=== PATIENT | male | born 1965 | race Caucasian/White ===

== ENCOUNTER 2019-07-30 06:15 | Emergency (ER) | payer BC ==
--- NOTE | 2019-07-30 06:32 | ED ---
Abdominal Pain/Male - HPI Summary HPI Summary: Patient is a 53-year-old male who presents emergency department for left-sided abdominal pain that started yesterday. Patient notes pain is sharp and cramping in nature and constant. No modifying factors. Associated symptoms of nausea and diarrhea. Denies fever, chest pain, shortness of breath, urinary symptoms, testicular pain. No past medical history. Symptoms are moderate in severity. - History of Current Complaint Chief Complaint: EDAbdPain Stated Complaint: ABD PAIN PER PT Time Seen by Provider: 07/30/19 06:30 Hx Obtained From: Patient Pain Intensity: 8 - Allergies/Home Medications Allergies/Adverse Reactions: Allergies Allergy/AdvReac Type Severity Reaction Status Date / Time lidocaine Allergy Dizziness Verified 07/30/19 06:18 Home Medications: Home Medications Glucosam/Chondr/Collagn/Hyalur [Glucosamine & Chondroitin Cap] 1 tab PO DAILY [History Confirmed 07/30/19] Magnesium Oxide [Magnesium] 250 mg PO DAILY 07/30/19 [History Confirmed 07/30/19 ] Montelukast Sodium 10 mg PO DAILY 07/30/19 [History Confirmed 07/30/19] PMH/Surg Hx/FS Hx/Imm Hx Previously Healthy: Yes Endocrine/Hematology History: Denies: Hx Diabetes Cardiovascular History: Denies: Hx Hypertension, Hx Pacemaker/ICD Respiratory History: Reports: Hx Seasonal Allergies, Hx Sleep Apnea History: Denies: Hx Renal Disease Sensory History: Denies: Hx Hearing Aid Neurological History: Denies: Other Neuro Impairments/Disorders Psychiatric History: Denies: Hx Panic Disorder - Cancer History Cancer Type, Location and Year: BASAL CELL -SKIN - S/P 3 YRS - Surgical History Surgery Procedure, Year, and Place: Lateral Internal Sphincterotomy Infectious Disease History: No Infectious Disease History: Denies: Traveled Outside the [place] in Last 30 Days - Family History Known Family History: Positive: Non-Contributory - Social History Occupation: Employed Full-time Lives: With Family Review of Systems Positive: Chills. Negative: Fever Cardiovascular: Negative Respiratory: Negative Positive: Abdominal Pain, Diarrhea, Nausea. Negative: Vomiting Genitourinary: Negative Negative: dysuria, flank pain Skin: Negative Neurological: Negative All Other Systems Reviewed And Are Negative: Yes Physical Exam Triage Information Reviewed: Yes Vital Signs On Initial Exam: Initial Vitals Temp Pulse Resp BP Pulse Ox 98.1 F 72 18 164/99 97 07/30/19 06:16 07/30/19 06:16 07/30/19 06:16 07/30/19 06:16 07/30/19 06:16 Vital Signs Reviewed: Yes Appearance: Positive: Well-Appearing - Pt. lying in bed in NAD. present. Skin: Positive: Warm, Dry Head/Face: Positive: Normal Head/Face Inspection Eyes: Positive: Normal, EOMI Neck: Positive: Supple Respiratory/Lung Sounds: Positive: Clear to Auscultation, Breath Sounds Present Cardiovascular: Positive: Normal, RRR Abdomen Description: Positive: Other: - Abd. is soft with pain on palpation to LLQ and mild left CVA tenderness. No rebound or guarding. Musculoskeletal: Positive: Normal, Strength/ROM Intact Neurological: Positive: Normal, Alert, Oriented to Person Place, Time Psychiatric: Positive: Affect/Mood Appropriate Diagnostics - Vital Signs Vital Signs Temp Pulse Resp BP Pulse Ox 07/30/19 06:16 98.1 F 72 18 164/99 97 - Laboratory Result Diagrams: 07/30/19 07:34 07/30/19 07:34 Lab Statement: Any lab studies that have been ordered have been reviewed, and results considered in the medical decision making process. Abdominal Pain Male Course/Dx - Course Course Of Treatment: Pt. presenting with worsening LLQ pain. He is afebrile. Will obtain labs and CT scan for further evaluation. Pt. given IV fluids, zofran and morphine. CT per radiolgoy: IMPRESSION: 1. THERE IS A 8 MM OBSTRUCTIVE CALCULUS NEAR THE URETEROPELVIC JUNCTION ON THE LEFT. THERE IS MILD LEFT PERIRENAL STRANDING WITH A DELAYED NEPHROGRAM. Pain and nausea returned after CT Scan. Pt. given a dose of toradol and another dose of morphine and zofran. CBC shows mild leukocytosis. Cr elevated, U/A shows RBCs wthout infection. Lactic acid 2.1. On re-exam pt.'s pain is 0/10. Case discussed with Dr. Valle who requested KUB. Imaging reviewed. Dr. Valle states pt. will need a stent and lithotripsy. Dr. Valle can place a stent today and then have pt. f.u for litho. next week or he can see pt. in the office today and then schedule him for stent and litho together on Friday. Pt. would prefer to have both procedures on Friday. Percocet and zofran rx. CAR[employer]IMMER reviewed. Pt. to go to Dr. Valle's office directly upon dc. To return to ER over weekend for fever or uncontrolled pain/vomiting. Pt. and understand and agree with plan. - Diagnoses Differential Diagnosis/HQI/PQRI: Diverticulitis, Prostatitis, Renal Colic, Ureteral Stone, Urinary Tract Infection Provider Diagnoses: Urolithiasis Discharge ED - Sign-Out/Discharge Documenting (check all that apply): Patient Departure Patient Received Moderate/Deep Sedation with Procedure: No - Discharge Plan Condition: Improved Disposition: HOME Prescriptions: Ondansetron TAB* [Zofran 4 MG Tab*] 4 mg PO Q6H PRN #12 tab PRN Reason: Nausea oxyCODONE/Acetamin 5/325 MG* [Percocet 5/325 TAB*] 1 tab PO Q6H PRN #20 tab MDD 4 PRN Reason: Pain - Severe Patient Education Materials: Kidney Stones (ED) Referrals: Kvng Alvarado MD [Primary Care Provider] - Ambrosio Valle MD [Medical Doctor] - Additional Instructions: Please go directly to Dr. Valle's office upon discharge from the ED Pain medication as directed Ibuprofen as directed Increase fluids Return to ER for uncontrolled pain, vomiting, fever, or if concerned - Billing Disposition and Condition Condition: IMPROVED Disposition: Home
[2019-07-30] MEDS ORDERED: NS 0.9% 1000 ML** 1,000 ML IV ONE (06:52)
[2019-07-30] MEDS ORDERED: Morphine 4 MG/ML VIAL (1 ml) 4 MG/ML VIAL IV ONE ×2 (06:52→08:43)
[2019-07-30] MEDS ORDERED: Ondansetron INJ* 2 MG/ML VIAL IV ONE ×2 (06:52→08:43)
--- OUTSIDE RECORDS SUMMARY | 2019-07-30 07:18 | XMS REPORT | Continuity of Care Document ---
:1965 External Reference #:[id number] Author Name Doris Junior DNP, RN, [employer] (transmitted by agent of provider Gin Randall) Address [address], [address] [place] [address] Care Team Providers Name Role Phone Kvng Alvarado MD - Family Medicine Care Team Information K 12 Principal Problems Active Problems Provider Date Obstructive sleep apnea of adult Doris Junior DNP, RN, [employer] Onset: Social History Type Date Description Comments Sex Unknown ETOH Use Drinks Alcoholic Beverages Occasionally Tobacco Use Start: Unknown Patient has never smoked Recreational Drug Use Denies Drug Use Smoking Status Reviewed: 07/06/19 Patient has never smoked Exercise Type/Frequency Does not exercise Allergies, Adverse Reactions, Alerts Description No Known Drug Allergies Medications Active Medications SIG Qnty Indications Ordering Provider Date Shirley Allergy as directed by Unknown 03/25/2016 mouth Claritin as directed by Unknown 03/25/2016 mouth Multi Vitamin Mens every day by mouth Unknown 03/25/2016 Magnesium Unknown Glucosamine Unknown Chondroitin Complex Immunizations Description No Information Available Vital Signs Date Vital Result Comment 07/06/2019 1:46pm Height 68 inches 5'8" Weight 196.38 lb Heart Rate 64 /min BP Systolic Sitting 122 mmHg Lue large cuff BP Diastolic Sitting 80 mmHg Lue large cuff Respiratory Rate 16 /min O2 % BldC Oximetry 97 % On Ra BMI (Body Mass Index) 29.9 kg/m2 06/23/2018 1:33pm Height 68 inches 5'8" Weight 194.00 lb Heart Rate 64 /min BP Systolic Sitting 148 mmHg Lue reg cuff BP Diastolic Sitting 80 mmHg Lue reg cuff Respiratory Rate 16 /min O2 % BldC Oximetry 97 % On Ra BMI (Body Mass Index) 29.5 kg/m2 Results Description No Information Available Procedures Description No Information Available Medical Devices Description No Information Available Encounters Description No Information Available Assessments Date Code Description Provider 07/06/2019 G47.33 Obstructive sleep apnea (adult) Doris Junior DNP, RN, [employer]- (pediatric) Plan of Treatment 07/06/2019 - Doris Junior DNP, RN, [employer]G47.33 Obstructive sleep apnea ( adult) (pediatric)Comments:Sleep Apnea - NPSG 01/09/09 wt 185 BMI 28 AHI 52.3 /hour, oxygen jayy 87% On CPAP AHI 0.9/hour, normalFollow up:1 yearRecommendations:Continue PAP device, Benefitting and compliant with treatment. Cleaning Wipe off mask daily (baby wipe-no scent, or warm water) Clean mask, tubing, filter, and water chamber weekly in mild no scent dish soap and water. Hang to dry. If you have any sleepiness while driving you MUST avoid operating a vehicle or machinery. If you have difficulty with your equipment, or need to replace your mask or hoses, please contact your homecare agency. A weight change of 20 pounds or more may have an effect onyour equipment ; if you are experiencing problems please call for an appointment. If you have any further questions, please call the [facility] at [phone]. Functional Status Description No Information Available Mental Status Description No Information Available Referrals Description No Information Available
[2019-07-30 07:56] LABS: ABS Lymphocytes 0.8 10^3/ul (1.0-4.8); ABS Monocytes 0.6 10^3/ul (0-0.8); ABS Neutrophils 11.5 10^3/ul (1.5-7.7); Eosinophil % 0.2 %; Hematocrit 43 % (42-52); Hemoglobin 14.8 g/dL (14.0-18.0); Mean Corpuscular HGB Conc 35 g/dL (31-36); Mean Corpuscular Hemoglobin 32 pg (27-31); Mean Corpuscular Volume 93 fL (80-94); Mean Platelet Volume 7.8 fL (7.4-10.4); Platelet Count 277 10^3/uL (150-450); Red Cell Distribution Width 13 % (10-15)
[2019-07-30 07:58] LABS: ALT 43 U/L (7-52); AST 22 U/L (13-39); Albumin 4.4 g/dL (3.2-5.2); Albumin/Globulin Ratio 2.1 (1-3); Alkaline Phosphatase 47 U/L (34-104); Anion Gap 5 mmol/L (2-11); BUN/Creatinine Ratio 13.8 (8-20); Blood Urea Nitrogen 19 mg/dL (6-24); C Reactive Protein < 1.00 mg/L (<8.01); CO2 Carbon Dioxide 28 mmol/L (22-32); Calcium 9.3 mg/dL (8.6-10.3); Chloride 108 mmol/L (101-111); EGFR Non-African American 53.7 (>60); Globulin 2.1 g/dL (2-4); Glucose 119 mg/dL (70-100); Potassium 4.1 mmol/L (3.5-5.0); Sodium 141 mmol/L (135-145); Total Protein 6.5 g/dL (6.4-8.9)
[2019-07-30] MEDS ORDERED: Iodixanol* (CONTRAST) 320 MG/ML 100 ML SDV IV ONE (08:15)
[2019-07-30] MEDS ORDERED: Ketorolac INJ* 30 MG/ML 1 ML VIAL IV PUSH ONE (08:47)
[2019-07-30 09:25] LABS: Urine Appearance Clear; Urine Bacteria Absent (Absent); Urine Bilirubin Negative (Negative); Urine Blood 2+ (Negative); Urine Color Yellow; Urine Glucose Negative (Negative); Urine Ketones Negative (Negative); Urine Nitrite Negative (Negative); Urine Protein Negative (Negative); Urine Red Blood Cell 3+(>10/hpf) (Absent); Urine Urobilinogen Negative (Negative); Urine White Blood Cell Trace(0-5/hpf) (Absent)
[2019-07-30 11:09] VITALS: BP 145/95
== END 2019-07-30 11:07 | disposition home or self-care (01) ==
LOC: ED 06:15
DX: N20.1 Calculus of ureter (principal); R11.0 Nausea; R19.7 Diarrhea, unspecified; Z88.4 Allergy status to anesthetic agent
CPT/HCPCS: 36415; 74018; 74177; 80053; 81003; 81015; 83605; 85025; 86140; 87086; 96361; 96374; 96375; 96376; 99283; J1885; J2270; J2405; Q9967

== ENCOUNTER → 2019-08-02 | Day surgery (SDC) | payer BC ==
--- NOTE | 2019-07-30 16:26 | HP ---
CC: Dr. Alvarado; Dr. Valle ADMITTING HISTORY AND PHYSICAL: DATE OF ADMISSION: 08/02/19 ADMITTING DIAGNOSES: 1. Calculus, left ureteropelvic junction. 2. Left hydronephrosis. PLANNED PROCEDURE: Left stent insertion and shockwave lithotripsy of calculus, left ureter. SURGEON: Dr. Valle. HISTORY OF PRESENT ILLNESS: Balta Whitlock is a 53-year-old gentleman who has had increasing left fla nk pain for the last several days associated with nausea and chills. A CT scan revealed an approxima tely 8 mm calculus in the area of the left ureteropelvic junction with left hydronephrosis. PAST MEDICAL HISTORY: Significant for: 1. Gout. 2. Environmental allergies. PAST SURGICAL HISTORY: Significant for vasectomy and removal of basal cell carcinoma from face. MEDICATIONS ON ADMISSION: 1. Singulair 1 tablet daily. 2. Multiple vitamins and supplements. ALLERGIES: LIDOCAINE. FAMILY HISTORY: Negative for stones. SOCIAL HISTORY: Smoking history, nonsmoker. REVIEW OF SYSTEMS: Otherwise in excellent health. There is no history of diabetes mellitus or any o ther major systemic illness. PHYSICAL EXAMINATION GENERAL: Reveals a pleasant, middle-aged gentleman. VITAL SIGNS: Blood pressure is 140/80, pulse 83 per minute and regular, temperature 97, oxygen satur ation 98% on room air. LUNGS: Clear bilaterally. CARDIOVASCULAR: Regular rate and rhythm. S1, S2. ABDOMEN: Soft with left flank tenderness. DIAGNOSTIC STUDIES/LAB DATA: I reviewed the CT scan in the lab and had a detailed discussion with Samuel souza and Mrs. Whitlock regarding the diagnosis and treatment option. IMPRESSION AND PLAN: I discussed the procedure of left stent insertion and shockwave lithotripsy in detail. I also discussed the small possibility that this may represent a uric acid stone (difficult to tell right now because of the intravenous contrast that was administered for his CAT scan) and in that case the plan will be a left stent insertion followed by medication to increase the urine pH to try to dissolve the calculus. The most likely scenario is a calcium stone, in which case the plan wo uld be left stent insertion and shockwave lithotripsy. This decision will be made based on a KUB x-r ay to be obtained prior to the procedure on Friday. [id number]/[facility] #: [id number]
[~2019-08-02] MED LIST: Buffered Lidocaine 1% SYRIN* 1 ML/SYRINGE INTRADERM ONE; Dexamethasone IV* 4 MG/ML 1 ML (4 MG) IV SLOW PU ONE; Dexamethasone IV* 4 MG/ML 1 ML (4 MG) ONE; DiMENhydriNATE IV* 50 MG/ML VIAL IV PUSH PRN; Famotidine IV* 10 MG/ML 2 ML (20 mg) IV ONE; Famotidine IV* 10 MG/ML 2 ML (20 mg) ONE; Iohexol 180 (CONTRAST) 10 ML SDV IV ONE; Lactated Ringers 1000 ML Bag* 1,000 ML IV SCH; Midazolam* 1 MG/ML 2 ML VIAL (2 MG) ONE; Naloxone* 0.4 MG/ML 1 ML VIAL IV PRN; Ondansetron INJ* 2 MG/ML VIAL ONE; Propofol* 10 MG/ML 20 ML BTL ONE; Tamsulosin CAP* 0.4 MG ONE; ceFAZolin 2 GM PREMIX in ORs 0 GM/0 ML BAG ONE; cefTRIAXone(*) 1 GM ADVAN/BAG ONE; cefTRIAXone(*) 2 GM ADDV.VIAL IVPB ONE; fentaNYL* 50 MCG/ML 2 ML VIAL (100 MCG VIAL) IV PRN; fentaNYL* 50 MCG/ML 2 ML VIAL (100 MCG VIAL) ONE
[2019-08-02 17:27] VITALS: BP 135/85
--- NOTE | 2019-08-03 00:44 | OP ---
DATE OF OPERATION: 08/02/19 - [facility] DATE OF : 63 SURGEON: Ambrosio Valle MD. ANESTHESIOLOGIST: Dr. Cuellar. ANESTHESIA: General. PRE-OP DIAGNOSES: 1. Calculus, left ureteropelvic junction. 2. Left hydronephrosis. POST-OP DIAGNOSES: 1. Calculus, left ureteropelvic junction. 2. Left hydronephrosis. OPERATIVE PROCEDURE: 1. Shock wave lithotripsy of calculus, left proximal ureter. 2. Cystoscopy, left retrograde and left stent insertion . COMPLICATIONS: None. STENT USED: #6 Mexican stent left ureter. POSTOPERATIVE CONDITION: Stable. OPERATIVE FINDINGS: Left hydronephrosis secondary to approximately 8 mm calculus left ureteropelvic junction. INDICATIONS: Balta Whitlock is a 53-year-old gentleman who has had episodic left flank pain secondary to a calculus at the left ureteropelvic junction. DESCRIPTION OF PROCEDURE: After induction of general anesthesia, the patient was placed on the lithotripsy table in supine position. The calculus in the left ureteropelvic junction was localized using fluoroscopy. Shock wave lithotripsy was commenced at a rate of 90 shocks per minute. Periodic imaging revealed good localization and fragmentation and a total of 1200 shocks were administered to the calculus. Next, the patient was placed in dorsal lithotomy position and cystoscopy was performed. Mild strictures were noted in the bulbar urethra with mild enlargement of the prostate. The bladder was examined and appeared normal. Left retrograde pyelogram revealed left hydronephrosis and a 6-Mexican stent was introduced and positioned under fluoroscopy with good proximal and distal positioning obtained. The bladder was emptied. The patient tolerated the procedure satisfactorily and was transferred back to the recovery area in stable condition. [id number]/[facility] #: [id number] MTDD
== END | disposition home or self-care (01) ==
LOC: OR 12:58
PROVIDERS: ATTEND Urology
DX: N13.2 Hydronephrosis with renal and ureteral calculous obstruction (principal); M10.9 Gout, unspecified; J30.89 Other allergic rhinitis; Z85.828 Personal history of other malignant neoplasm of skin
CPT/HCPCS: 74018; C1876; J0690; J0696; J1100; J2250; J2405; J2704; J3010